=== PATIENT | female | born 1965 | race Caucasian/White ===

== ENCOUNTER 2017-06-23 19:29 | Emergency (ER) | payer BC ==
[~2017-06-23] VITALS: Ht 172.7 cm; Wt 59.0 kg
[2017-06-23] MEDS ORDERED: Tetanus/Diptheria/Pertussis Vaccine 0.5ml Syr IM ONE (19:45)
[2017-06-23] MEDS ORDERED: Lidocaine 1% 10mg/ml/Epi 0.005mg/ml 30ml vial INJ ONE (19:45)
[2017-06-23 20:18] LABS: BASOPHILS % (AUTO) 1.4 % (0.0-2.0); EOSINOPHILS % (AUTO) 1.1 % (0.0-3.0); HEMATOCRIT 44.4 % (37.0-47.0); HEMOGLOBIN 15.5 G/DL (12.0-16.0); LYMPHOCYTES % (AUTO) 35.6 % (20.0-45.0); MEAN CORPUSCULAR VOLUME 95 FL (80-99); MONOCYTES % (AUTO) 4.2 % (1.0-10.0); NEUTROPHILS % (AUTO) 57.7 % (45.0-75.0); PLATELET COUNT 313 K/UL (150-450); RED BLOOD COUNT 4.65 M/UL (4.20-5.40); RED CELL DISTRIBUTION WIDTH 11.2 % (11.6-14.8); WHITE BLOOD COUNT 4.6 K/UL (4.8-10.8)
--- NOTE | 2017-06-23 20:24 | Emergency Room Report ---
History of Present Illness General Chief Complaint: Head Injury Source: Patient, Significant Other Present Illness HPI Patient is a 51-year-old female brought in by family member after unwitnessed fall. The patient had reportedly been previous a healthy. She had prior history of lupus for which she takes Plaquenil. She was noted to have bleeding from a laceration to her face after falling. The patient does not recall what she hit her head on. She denies alcohol use. She denies any neck or back pain. She denies visual changes Allergies: Uncoded Allergies: SHELLFISH (Allergy, Unknown, 06/23/17) Patient History Past Medical History: see triage record Last Menstrual Period: 10/26 Now: No : 3 Para: 0 Reviewed Nursing Documentation: PMH: Agreed, PSxH: Agreed Review of Systems All Other Systems: negative except mentioned in HPI Physical Exam Vital Signs Date Time Temp Pulse Resp B/P (MAP) Pulse Ox O2 Delivery O2 Flow Rate FiO2 06/23/17 19:31 97.9 102 14 111/81 95 Room Air Sp02 EP Interpretation: reviewed, normal General Appearance: normal inspection, well appearing, no apparent distress, alert, GCS 15 Head: normocephalic Eyes: bilateral eye PERRL, bilateral eye other - nystagmus ENT: normal ENT inspection, hearing grossly normal, normal voice Neck: normal inspection, full range of motion, supple, no bony tend Respiratory: normal inspection, lungs clear, normal breath sounds, no respiratory distress, no retraction, no wheezing Cardiovascular #1: regular rate, rhythm, no edema Gastrointestinal: normal inspection, normal bowel sounds, non tender, soft, no guarding, no hernia Genitourinary: no CVA tenderness Musculoskeletal: normal inspection, back normal, normal range of motion Neurologic: normal inspection, alert, oriented x3, responsive, speech normal, other - ataxic gait Psychiatric: normal inspection, judgement/insight normal, mood/affect normal Skin: no rash, other - bruising to left eye. Laceration 2 cm left eyelid Procedures Laceration/Wound Repair Laceration/Wound Repair : Consent: Verbal Wound Location: face Wound's Depth, Shape: superficial Wound Length (cm): 2 Wound Explored: clean Irrigated w/ Saline (ccs): 10 Betadine Prep?: Yes Anesthesia: Lidocaine w/ Epi Volume Anesthetic (ccs): 10 Wound Repaired With: sutures Suture Size/Type: 5:0 Number of Sutures: 5 Layer Closure?: No Patient Tolerated: Well Complications: None Medical Decision Making Diagnostic Impression: Primary Impression: Acute head injury Additional Impressions: Laceration Eye contusion ER Course Patient presented for fall and laceration. Differential diagnoses included, facial fracture, foreign body, nerve injury, arterial injury among others.Because of complexity of patient's case laboratory testing and imaging studies were ordered.A CT head read by radiology showed no evidence of cranial hemorrhage or fracture. There is a left periorbital hematoma noted globes are intact. The patient did have improvement her mental status. Patient was advised to have sutures removed in 5-7 days . Patient is advised to return if any worsening condition or if any changes in status that are concerning. This report is dictated with [employer] design teacher software which may occasionally lead to discrepancies related to use of this software. Labs Test 06/23/17 19:55 06/23/17 20:38 White Blood Count 4.6 K/UL (4.8-10.8) Red Blood Count 4.65 M/UL (4.20-5.40) Hemoglobin 15.5 G/DL (12.0-16.0) Hematocrit 44.4 % (37.0-47.0) Mean Corpuscular Volume 95 FL (80-99) Mean Corpuscular Hemoglobin 33.3 PG (27.0-31.0) Mean Corpuscular Hemoglobin Concent 34.9 G/DL (32.0-36.0) Red Cell Distribution Width 11.2 % (11.6-14.8) Platelet Count 313 K/UL (150-450) Mean Platelet Volume 6.7 FL (6.5-10.1) Neutrophils (%) (Auto) 57.7 % (45.0-75.0) Lymphocytes (%) (Auto) 35.6 % (20.0-45.0) Monocytes (%) (Auto) 4.2 % (1.0-10.0) Eosinophils (%) (Auto) 1.1 % (0.0-3.0) Basophils (%) (Auto) 1.4 % (0.0-2.0) Prothrombin Time 9.4 SEC (9.30-11.50) Prothromb Time International Ratio 0.9 (0.9-1.1) Activated Partial Thromboplast Time 25 SEC (23-33) Sodium Level 143 MMOL/L (136-145) Potassium Level 3.5 MMOL/L (3.5-5.1) Chloride Level 103 MMOL/L (98-107) Carbon Dioxide Level 26 MMOL/L (21-32) Anion Gap 14 mmol/L (5-15) Blood Urea Nitrogen 6 mg/dL (7-18) Creatinine 0.8 MG/DL (0.55-1.30) Estimat Glomerular Filtration Rate > 60 mL/min (>60) Glucose Level 101 MG/DL (74-106) Calcium Level 9.3 MG/DL (8.5-10.1) Total Bilirubin 0.2 MG/DL (0.2-1.0) Aspartate Amino Transf (AST/SGOT) 29 U/L (15-37) Alanine Aminotransferase (ALT/SGPT) 105 U/L (12-78) Alkaline Phosphatase 49 U/L (46-116) Troponin I 0.010 ng/mL (0.000-0.056) Total Protein 7.3 G/DL (6.4-8.2) Albumin 4.2 G/DL (3.4-5.0) Globulin 3.1 g/dL Albumin/Globulin Ratio 1.4 (1.0-2.7) Urine Color Pale yellow Urine Appearance Clear Urine pH 6 (4.5-8.0) Urine Specific [place] 1.010 (1.005-1.035) Urine Protein Negative (NEGATIVE) Urine Glucose (UA) Negative (NEGATIVE) Urine Ketones Negative (NEGATIVE) Urine Occult Blood 2+ (NEGATIVE) Urine Nitrite Negative (NEGATIVE) Urine Bilirubin Negative (NEGATIVE) Urine Urobilinogen Normal MG/DL (0.0-1.0) Urine Leukocyte Esterase Negative (NEGATIVE) Urine RBC 0-2 /HPF (0 - 2) Urine WBC 0 /HPF (0 - 2) Urine Squamous Epithelial Cells Occasional /LPF Urine Bacteria Occasional /HPF (NONE) Urine HCG, Qualitative Negative Urine Opiates Screen Negative (NEGATIVE) Urine Barbiturates Screen Negative (NEGATIVE) Phencyclidine (PCP) Screen Negative (NEGATIVE) Urine Amphetamines Screen Negative (NEGATIVE) Urine Benzodiazepines Screen Negative (NEGATIVE) Urine Cocaine Screen Negative (NEGATIVE) Urine Marijuana (THC) Screen Positive (NEGATIVE) Last Vital Signs Date Time Temp Pulse Resp B/P (MAP) Pulse Ox O2 Delivery O2 Flow Rate FiO2 2/11/18 19:31 97.9 102 14 111/81 95 Room Air Status: improved Disposition: HOME, SELF-CARE Condition: Stable Scripts Unable to Obtain Active Prescriptions or Reported Meds Norman Gutierrez Jun 23, 2017 20:24
[2017-06-23 20:33] LABS: ANION GAP 14 mmol/L (5-15); BLOOD UREA NITROGEN 6 mg/dL (7-18); CALCIUM 9.3 MG/DL (8.5-10.1); CARBON DIOXIDE 26 MMOL/L (21-32); CHLORIDE 103 MMOL/L (98-107); CREATININE 0.8 MG/DL (0.55-1.30); POTASSIUM 3.5 MMOL/L (3.5-5.1); SODIUM 143 MMOL/L (136-145)
[2017-06-23 20:36] LABS: INR 0.9 (0.9-1.1)
[2017-06-23 20:38] LABS: ALANINE AMINOTRANSFERASE 105 U/L (12-78); ALBUMIN 4.2 G/DL (3.4-5.0); ALBUMIN/GLOBULIN RATIO 1.4 (1.0-2.7); ALKALINE PHOSPHATASE 49 U/L (46-116); ASPARTATE AMINO TRANSFERASE 29 U/L (15-37); BILIRUBIN,TOTAL 0.2 MG/DL (0.2-1.0)
[2017-06-23 20:56] LABS: APPEARANCE,URINE CLEAR; BILIRUBIN, URINE NEGATIVE (NEGATIVE); COLOR,URINE PALE YELLOW; GLUCOSE, URINE (UA) NEGATIVE (NEGATIVE); KETONES,URINE NEGATIVE (NEGATIVE); LEUKOCYTE ESTERASE ,URINE NEGATIVE (NEGATIVE); NITRITE,URINE NEGATIVE (NEGATIVE); PH,URINE 6 (4.5-8.0); PROTEIN,URINE NEGATIVE (NEGATIVE); UROBILINOGEN,URINE NORMAL MG/DL (0.0-1.0)
[2017-06-23] MEDS ORDERED: Tobramycin 0.3% Opth Oint 3.5gm LEFT EYE ONE (21:15)
[2017-06-23] MEDS ORDERED: GENOPTIC O.O1 APPLIC LEFT EYE (21:53)
[2017-06-23 21:56] VITALS: BP 108/65
[2017-06-23 22:06] VITALS: BP 108/65
--- NOTE | 2017-06-24 09:15 | Diagnostic Imaging Report ---
Indication: Trauma Technique: Continuous helical transaxial imaging of the maxillofacial structures obtained without intravenous contrast administration. Coronal 2-D reformats were also obtained. Study obtained in a Siemens sensation [address] Automatic Exposure Control was utilized. Total Dose length Product (DLP): 529.[address] Dose Index Volume (CTDIvol): 28.19 mGy Comparison: None Findings: No acute fracture is identified. There is a moderate hematoma and soft tissue swelling over the left periorbital region. The orbits are symmetric. There is no proptosis or retrobulbar hemorrhage. Paranasal sinuses are clear. IMPRESSION: Left periorbital hematoma. No acute fracture. [facility] has communicated the preliminary results to the Emergency Department. Their findings are largely concordant with this report. The CT scanner at [facility] is accredited by the [employer] and the scans are performed using dose optimization techniques as appropriate to a performed exam including Automatic Exposure control.
--- NOTE | 2017-06-24 09:42 | Diagnostic Imaging Report ---
Indication: Altered mental status Technique: Contiguous 5 mm thick transaxial imaging of the head obtained in a Siemens Sensation [address] scanner. Soft tissue and bone windows generated. Automatic Exposure Control was utilized. Total Dose length Product (DLP): 1372.[address] Dose Index Volume (CTDIvol): 70.38 mGy Comparison: none Findings: The size and configuration of the cortical sulci, basal cisterns, and ventricles are within normal limits for age. There is no mass effect, midline shift, or edema identified. There is no evidence of acute hemorrhage or abnormal intra-axial or extra-axial fluid collections. Left periorbital soft tissue swelling/hematoma noted. Impression: No mass effect, edema or acute bleed. [facility] has communicated the preliminary results to the Emergency Department. Their findings are largely concordant with this report. The CT scanner at [facility] is accredited by the [employer] and the scans are performed using dose optimization techniques as appropriate to a performed exam including Automatic Exposure control.
== END 2017-06-23 22:06 | disposition home or self-care (01) ==
LOC: EMR 20:03
DX: S01.112A Laceration without foreign body of left eyelid and periocular area, initial encounter (principal); Z23 Encounter for immunization; M32.9 Systemic lupus erythematosus, unspecified; Z91.013 Allergy to seafood; W18.30XA Fall on same level, unspecified, initial encounter; Y92.9 Unspecified place or not applicable
CPT/HCPCS: 36415; 70450; 70486; 80053; 80307; 81001; 81025; 84484; 85025; 85610; 85730; 90471; 90715; 99284

== ENCOUNTER 2020-03-26 19:16 | Emergency (ER) | payer BC ==
[~2020-03-26] VITALS: Ht 170.2 cm; Wt 59.0 kg
[~2020-03-26 19:16] MED LIST: GENOPTIC O.O1 APPLIC LEFT EYE
--- NOTE | 2020-03-26 19:22 | Emergency Room Report ---
History of Present Illness General Chief Complaint: Syncope Source: Patient Present Illness HPI Disclaimer: Please note that this report is being documented using DRAGON technology. This can lead to erroneous entry secondary to incorrect interpretation by the dictating instrument. HPI: 54-year-old female presents after syncopal episode. Patient states she has not been sleeping well recently and took edible marijuana earlier today. She went to use the bathroom in her home, felt lightheaded and had a loss of conscious. She fell from a standing position striking the back of her head against the floor. She awoke immediately. No seizure reported. Denied blee ding. EMS was called that she was feeling faint. Denied presyncopal chest pain, palpitations, diaphoresis. No prior episodes of syncope. Does not take blood thinners. She currently complains of pain over the hematoma site but denies headache, vision changes, nausea, vomiting, seizure activity. No other injury reported. Denies pain in the neck, extremities, back or in the pelvis. Arrives by EMS with stable vital signs on route. No other complaints from patient at this time. PMH: Hypothyroidism PSH: Reviewed Allergies: Shellfish Social Hx: Occasional THC Allergies: Uncoded Allergies: SHELLFISH (Allergy, Unknown, 06/23/17) COVID-19 Screening Contact w/high risk pt: No Experienced COVID-19 symptoms?: No COVID-19 Testing performed SET UP AND LAY OUT INSPECTOR: No Patient History Last Menstrual Period: 2015 Now: No : 0 Nursing Documentation-PMH Past Medical History: No History, Except For Review of Systems All Other Systems: negative except mentioned in HPI Physical Exam General: Awake and alert, no acute distress HEENT: Normocephalic, there is a approximately 3 cm hematoma over the occiput on the right side without overlying laceration.. There are no scalp or face hematomas, lacerations or abrasions. No tenderness or soft tissue swelling over the facial bones. EOMI. PERRLA. No septal hematoma. No oral lacerations. Dentition is intact. No malocclusion Neck: Supple, trachea midline. Arrives without cervical collar Chest Wall: No tenderness, no deformity, no crepitus CV: RRR. S1 and S2 normal. No murmur appreciated Resp: Normal work of breathing. No cough, wheezing or crackles appreciated Abd: Soft, nontender, nondistended Skin: scalp hematoma but no lacerations or abrasions. MSK: Normal tone and bulk. No obvious deformity. Moving all extremities. Ambulating without difficulty. Neuro: Awake and alert. Mentating appropriately. Sensation is intact to light touch over the dermatomes of the upper and lower extremities Spine: There is no tenderness, step-off or deformity in the cervical, thoracic or lumbosacral spine. Medical Decision Making Diagnostic Impression: Primary Impression: Closed head injury Additional Impressions: Scalp hematoma Syncope Elevated TSH ER Course Is a 54-year-old female presenting for evaluation after a syncopal episode with head injury. No seizure activity reported patient does not take anticoagulants. CT obtained to evaluate for intracranial injury. No evidence of hematoma, mass, fracture or other acute findings noted per radiology. Labs have returned within normal limits. EKG is nonischemic. Chest x-ray unremarkable. Believe the patient's syncope was likely secondary to cannabis use, exhaustion and dehydration. Urinalysis did show questionable urinary tract infection however the patient states she is asymptomatic does not want antibiotics at this time. She would prefer reevaluation after culture results. She received IV fluid and states she feels much better. She is safe for outpatient follow-up. Structure during plenty of fluids and avoid further drug use. TSH elevated and she can follow-up with for this on outpatient basis as well. Advised her to return to the ED with new or worsening symptoms. She will follow-up with her PMD as soon as possible. She understands and agrees to this treatment plan. Laboratory Tests Test 03/26/20 19:20 03/26/20 20:50 White Blood Count 5.3 K/UL (4.8-10.8) Red Blood Count 4.27 M/UL (4.20-5.40) Hemoglobin 13.9 G/DL (12.0-16.0) Hematocrit 41.2 % (37.0-47.0) Mean Corpuscular Volume 96 FL (80-99) Mean Corpuscular Hemoglobin 32.5 PG (27.0-31.0) H Mean Corpuscular Hemoglobin Concent 33.7 G/DL (32.0-36.0) Red Cell Distribution Width 12.0 % (11.6-14.8) Platelet Count 263 K/UL (150-450) Mean Platelet Volume 6.5 FL (6.5-10.1) Neutrophils (%) (Auto) 50.5 % (45.0-75.0) Lymphocytes (%) (Auto) 37.4 % (20.0-45.0) Monocytes (%) (Auto) 8.8 % (1.0-10.0) Eosinophils (%) (Auto) 1.5 % (0.0-3.0) Basophils (%) (Auto) 1.8 % (0.0-2.0) Prothrombin Time 10.8 SEC (9.30-11.50) Prothrombin Time INR 1.0 (0.9-1.1) Activated Partial Thromboplast Time 22 SEC (23-33) L Sodium Level 133 MMOL/L (136-145) L Potassium Level 4.0 MMOL/L (3.5-5.1) Chloride Level 97 MMOL/L (98-107) L Carbon Dioxide Level 30 MMOL/L (21-32) Anion Gap 6 mmol/L (5-15) Blood Urea Nitrogen 12 mg/dL (7-18) Creatinine 1.0 MG/DL (0.55-1.30) Estimated Glomerular Filtration Rate 58.2 mL/min (>60) Glucose Level 124 MG/DL (74-106) H Calcium Level 8.7 MG/DL (8.5-10.1) Total Bilirubin 0.5 MG/DL (0.2-1.0) Aspartate Amino Transferase (AST) 28 U/L (15-37) Alanine Aminotransferase (ALT) 49 U/L (12-78) Alkaline Phosphatase 53 U/L (46-116) Troponin I 0.024 ng/mL (0.000-0.056) Total Protein 7.0 G/DL (6.4-8.2) Albumin 4.1 G/DL (3.4-5.0) Globulin 2.9 g/dL Albumin/Globulin Ratio 1.4 (1.0-2.7) Thyroid Stimulating Hormone (TSH) 7.923 uiU/mL (0.358-3.740) Urine Color Yellow Urine Appearance Clear Urine pH 6 (4.5-8.0) Urine Specific [place] 1.015 (1.005-1.035) Urine Protein Negative (NEGATIVE) Urine Glucose (UA) Negative (NEGATIVE) Urine Ketones Negative (NEGATIVE) Urine Blood 2+ (NEGATIVE) H Urine Nitrite Negative (NEGATIVE) Urine Bilirubin Negative (NEGATIVE) Urine Urobilinogen Normal MG/DL (0.0-1.0) Urine Leukocyte Esterase 1+ (NEGATIVE) H Urine RBC 5-10 /HPF (0 - 2) H Urine WBC 5-10 /HPF (0 - 2) H Urine Squamous Epithelial Cells Few /LPF (NONE/OCC) Urine Amorphous Sediment Few /LPF (NONE) H Urine Bacteria Few /HPF (NONE) Urine Opiates Screen Negative (NEGATIVE) Urine Barbiturates Screen Negative (NEGATIVE) Phencyclidine (PCP) Screen Negative (NEGATIVE) Urine Amphetamines Screen Negative (NEGATIVE) Urine Benzodiazepines Screen Negative (NEGATIVE) Urine Cocaine Screen Negative (NEGATIVE) Urine Marijuana (THC) Screen Positive (NEGATIVE) H EKG Diagnostic Results Troponin ordered: Yes When was troponin ordered?: Mar 26, 2020 EKG Time: 19:18 Rate: bradycardiac Rhythm: NSR ST Segments: no acute changes Other Impression Sinus bradycardia, normal axis, normal intervals, no ST segment changes. Rhythm Strip Diag. Results Rhythm Strip Time: 19:18 EP Interpretation: yes Rate: 56 Rhythm: NSR, no PVC's, no ectopy Chest X-Ray Diagnostic Results Chest X-Ray Diagnostic Results : Chest X-Ray Ordered: Yes # of Views/Limited/Complete: 1 View Indication: Other - Syncope Interpretation: no consolidation, no effusion, no pneumothorax, no acute cardiopulmonary disease Impression: No acute disease Electronically Signed by: Electronically signed by Dr. Sung Schumacher MD CT/MRI/US Diagnostic Results CT/MRI/US Diagnostic Results : Impression Final Report EXAM: CT Head Without Intravenous Contrast CLINICAL HISTORY: INJ TECHNIQUE: Axial computed tomographyimages of the head/brain without intravenous contrast. CTDI is 53.4 mGy and DLP is 965.40 mGy-cm. One or more of the following dose reduction techniqueswere used: automated exposure control, adjustment of the mAand/or kVaccording to patient size, use of iterative reconstruction technique. COMPARISON: 06/23/2017 FINDINGS: Brain:No hemorrhage or mass effect. Ventricles:No hydrocephalus. Bones/joints:Unremarkable. Soft tissues:Right posterior scalp soft tissue swelling. Sinuses:Unremarkable. Mastoid air cells:Clear. IMPRESSION: No acute hemorrhage, hydrocephalus, or mass effect. Radiologist: Nazario Santamaria MD Electronically Signed: 03/26/20 19:46 Study ready at 19:44 and initial results transmitted at 19:46 Disposition: HOME, SELF-CARE Condition: Stable Sung Schumacher MD Mar 26, 2020 19:22
--- NOTE | 2020-03-26 19:45 | NUR ---
ED Nurse Note: Recieved pt BIBA from home, here wtih c/o s/p syncopal episode, un-witnessed and possible LOC, pt arrived awake, alert and oriented x 4, has hematoma to back of head, pain at 4/10 and throbbing, denies any other injuries, denies cp or sob, pt has hx of lupus and states has not been sleeping or eating consistently for past days, pt immediately gowned and placed on cardiac monitoring, IV line placed and labs drawn, will resume care with close, continuous monitoring.
--- NOTE | 2020-03-26 19:47 | Diagnostic Imaging Report ---
EXAM: CT Head Without Intravenous Contrast CLINICAL HISTORY: INJ TECHNIQUE: Axial computed tomography images of the head/brain without intravenous contrast. CTDI is 53.4 mGy and DLP is 965.40 mGy-cm. One or more of the following dose reduction techniques were used: automated exposure control, adjustment of the mA and/or kV according to patient size, use of iterative reconstruction technique. COMPARISON: 06/23/2017 FINDINGS: Brain: No hemorrhage or mass effect. Ventricles: No hydrocephalus. Bones/joints: Unremarkable. Soft tissues: Right posterior scalp soft tissue swelling. Sinuses: Unremarkable. Mastoid air cells: Clear. IMPRESSION: No acute hemorrhage, hydrocephalus, or mass effect.
[2020-03-26 19:50] VITALS: BP 105/69
[2020-03-26 19:56] LABS: BASOPHILS % (AUTO) 1.8 % (0.0-2.0); EOSINOPHILS % (AUTO) 1.5 % (0.0-3.0); HEMATOCRIT 41.2 % (37.0-47.0); HEMOGLOBIN 13.9 G/DL (12.0-16.0); LYMPHOCYTES % (AUTO) 37.4 % (20.0-45.0); MEAN CORPUSCULAR VOLUME 96 FL (80-99); MONOCYTES % (AUTO) 8.8 % (1.0-10.0); NEUTROPHILS % (AUTO) 50.5 % (45.0-75.0); PLATELET COUNT 263 K/UL (150-450); RED BLOOD COUNT 4.27 M/UL (4.20-5.40); WHITE BLOOD COUNT 5.3 K/UL (4.8-10.8)
[2020-03-26 20:08] LABS: CALCIUM 8.7 MG/DL (8.5-10.1)
--- NOTE | 2020-03-26 20:10 | Diagnostic Imaging Report ---
EXAM: XR Chest, 1 View CLINICAL HISTORY: SYNCOPE TECHNIQUE: Frontal view of the chest. COMPARISON: No relevant prior studies available. FINDINGS: Lungs: No consolidation or mass. Pleural space: No acute findings Heart: No cardiomegaly. Bones/joints: No acute findings. IMPRESSION: No acute cardiopulmonary process.
[2020-03-26 20:12] LABS: ALBUMIN 4.1 G/DL (3.4-5.0); ALBUMIN/GLOBULIN RATIO 1.4 (1.0-2.7); BILIRUBIN,TOTAL 0.5 MG/DL (0.2-1.0)
--- NOTE | 2020-03-26 20:20 | NUR ---
ED Nurse Note: Pt continues to rest quietly, on monitoring, v/s stable, IV site patent, declines need for pain meds, states to feed pt, given sandwich and juice, ate all and tolerated well, opt states she thinks that is what she needed, she feels much better, will continue to monitor while waiting for disposition.
[2020-03-26 20:45] VITALS: BP 109/67
--- NOTE | 2020-03-26 21:00 | NUR ---
ED Nurse Note: Pt assisted with ambulating to bathroom, tolerated well, denies dizziness or chest pain or sob, pt replaced back to monitoring, nad or changes noted.
[2020-03-26 21:13] LABS: APPEARANCE,URINE CLEAR; BILIRUBIN, URINE NEGATIVE (NEGATIVE); COLOR,URINE YELLOW; GLUCOSE, URINE (UA) NEGATIVE (NEGATIVE); KETONES,URINE NEGATIVE (NEGATIVE); LEUKOCYTE ESTERASE ,URINE 1+ (NEGATIVE); NITRITE,URINE NEGATIVE (NEGATIVE); PH,URINE 6 (4.5-8.0); PROTEIN,URINE NEGATIVE (NEGATIVE); UROBILINOGEN,URINE NORMAL MG/DL (0.0-1.0)
[2020-03-26 21:35] VITALS: BP 116/64
--- NOTE | 2020-03-26 21:45 | NUR ---
ER DISCHARGE NOTE: Patient is cleared to be discharged per ERMD, pt is aox4, on room air, with stable vital signs. pt was given dc and prescription instructions, pt was able to verbalize understanding, pt id band and iv site removed without complications. pt is able to ambulate with steady gait. pt took all belongings. pt spouse present to drive her.
[2020-03-26 21:50] VITALS: BP 116/64
--- NOTE | 2020-03-27 15:46 | Cardiology Report ---
APPROVED REPORT EKG Measurement Heart [id number] [place] 156P [id number] <Conclusion> Sinus bradycardia Otherwise normal ECG
== END 2020-03-26 21:50 | disposition home or self-care (01) ==
LOC: EDBD 19:16 → EMR 19:46
DX: S00.03XA Contusion of scalp, initial encounter (principal); R55 Syncope and collapse; R94.6 Abnormal results of thyroid function studies; E03.9 Hypothyroidism, unspecified; W01.198A Fall on same level from slipping, tripping and stumbling with subsequent striking against other object, initial encounter; Y93.89 Activity, other specified; Y92.012 Bathroom of single-family (private) house as the place of occurrence of the external cause; Z91.013 Allergy to seafood
CPT/HCPCS: 36415; 70450; 71045; 80053; 80307; 81003; 84443; 84484; 85025; 85610; 85730; 93005; 99284